=== PATIENT | male | born 1990 | race Caucasian/White ===

== ENCOUNTER 2021-12-28 08:42 | Emergency (ER) | payer OTHER, SELFPAY ==
[2021-12-28 08:57] VITALS: BP 130/68; PULSE 68; RESP 16; TEMP 36.6; O2SAT 99; BMI 22.8
--- NOTE | 2021-12-28 09:07 | ED.NURSE ---
Patient is unsure of tetnus status. Soaking left thumb in saline and chlorhexidine.
[2021-12-28] MEDS: cephALEXin 500 MG CAPSULE PO (10:11)
[2021-12-28] MEDS: ACETAMINOPHEN 500 MG TABLET 1000 MG PO (10:11)
[2021-12-28] MEDS: BUPIVACAINE 0.25% 30 ML INJECTION (10:11)
[2021-12-28] MEDS: TETANUS/DIPHTH/PERTUSSIS 0.5 ML SYRINGE IM (10:14)
--- NOTE | 2021-12-28 11:07 | ED.NURSE ---
Cleaned wound. Applied bacitracin, telfa and gauze. Applied spica thumb splint. Discharge instructions and dressing supplies given to patient. Patient has no PCP so plans to come back in 10 days for suture removal. [facility].
--- NOTE | 2021-12-28 16:03 | ED.WOUNDLAC ---
HPI - Wound/Laceration General Date Seen: 12/28/21 Chief Complaint: Laceration/Wound Stated Complaint: Cut on left hand Time Seen by Provider: 12/28/21 08:43 Source: patient Mode of arrival: ambulatory Limitations: no limitations History of Present Illness HPI narrative: Patient is a very nice 31-year-old [place] gentleman who presents here with a laceration to his left thumb, this occurred, while he was ripping up some old metal studs at the [employer] store. Right-hand dominant, here with a friend who is able to interpret for him. Denies any numbness tingling weakness or anything else. Related Data Previous Rx's Medication Instructions Recorded cephalexin 500 mg tablet 500 mg PO Q12H 14 days #28 tabs 12/28/21 Allergies Allergy/AdvReac Type Severity Reaction Status Date / Time No Known Drug Allergies Allergy Verified 12/28/21 08:57 Review of Systems Status of ROS: Reports: 6 or more systems reviewed and unremarkable except as noted in History and below PFSH PFSH Social History Smoking Status: Never smoker Do you use any of these nicotine containing products: None Second hand tobacco smoke exposure: No How often do you have a drink containing alcohol: never How often do you have six or more drinks on one occasion: Never AUDIT-C Alcohol total score: 0 Non-prescribed substance use: denies use service: No Exam Narrative: Exam Narrative: On exam the over the left thumb, between the IP flexion joint, and the MCP crease, on the palmar surface there is a flap laceration of approximately 7 cm, he has good IP flexion extension abduction adduction are all normal, cap refills normal and sensation is entirely normal over the finger. No other injuries noted, 0.25% Marcaine is use, infiltrated into the wound x4 mL is resulted in good anesthesia, sterile prep and drape was done, I was able to close with simple 8 times 3-0 sutures nonabsorbable blood loss less than 5 mL, there were no complications and there is no overt tendon or other injury. Vascular intact postprocedure, he is placed in a thumb spica splint. Const: Vital Signs, click to edit/add: Vital Signs - 24 hr 12/28/21 08:57 Temperature 98 F Pulse Rate [Pulse Oximeter] 68 Respiratory Rate 16 Blood Pressure [Ri ght Upper Arm] 130/68 Pulse Oximetry 99 Oxygen Delivery Me thod Room Air Course Vital Signs Vital signs: Initial Vital Signs Temperature 98 F 12/28/21 08:57 Temperature Source Temporal Artery Scan 12/28/21 08:57 Pulse Rate 68 12/28/21 08:57 Pulse Rhythm 12/28/21 08:57 Pulse Strength 3+ Normal 12/28/21 08:57 Respiratory Rate 16 12/28/21 08:57 Blood Pressure 130/68 12/28/21 08:57 Blood Pressure Mean 88 12/28/21 08:57 Blood Pressure Position Sitting 12/28/21 08:57 Pulse Oximetry 99 12/28/21 08:57 Oxygen Delivery Method 12/28/21 08:57 Vital Signs Temperature 98 F 12/28/21 08:57 Pulse Rate 68 12/28/21 08:57 Respiratory Rate 16 12/28/21 08:57 Blood Pressure 130/68 12/28/21 08:57 Pulse Oximetry 99 12/28/21 08:57 Oxygen Delivery Method 12/28/21 08:57 Temperature 98 F 12/28/21 08:57 Pulse Rate 68 12/28/21 08:57 Respiratory Rate 16 12/28/21 08:57 Blood Pressure 130/68 12/28/21 08:57 Pulse Oximetry 99 12/28/21 08:57 Oxygen Delivery Method 12/28/21 08:57 MDM - Wound/Laceration Differential Diagnosis Differential diagnosis: Likely laceration, abscess, abrasion and avulsion of skin Medical Records Attestation: I reviewed the patient's medical records. Discharge Plan Discharge Clinical Impression: Laceration Patient Disposition: Home w/ Parent or Adult Condition: Improved Instructions: Care For Your Stitches (DC), Finger Laceration (ED) Additional Instructions: Home rest leave splint on for the next week, laceration instructions given, bacitracin daily to laceration, recommend no immersing your hand in water, showering okay signs of infection such as increasing redness swelling or pus or fever then he should come back and be seen. Take antibiotics as directed, and sutures should come out in 10 days this can be done at the [facility], or back in the emergency Prescriptions: New cephalexin 500 mg tablet 500 mg PO Q12H 14 Days Qty: 28 0RF Follow Up/Referrals: Provider,Not a Local [Primary Care Provider] - Stand Alone Forms: MyHealth Info Instructions
== END 2021-12-28 11:09 | disposition home or self-care (01) ==
PROVIDERS: Emergency Provider Family Medicine
DX: S61.012A Laceration without foreign body of left thumb without damage to nail, initial encounter (principal); W26.8XXA Contact with other sharp object(s), not elsewhere classified, initial encounter; Y99.0 Civilian activity done for income or pay
CPT/HCPCS: 12002; 90715; 99283; A9270; J3490